=== PATIENT | male | born 1950 | race Caucasian/White ===

== ENCOUNTER 2016-11-28 09:22 | Emergency (ER) | payer MEDICARE, OTHER | END 2016-11-28 10:46 | disposition home or self-care (01) | DX: L03.031 Cellulitis of right toe (principal); R03.0 Elevated blood-pressure reading, without diagnosis of hypertension ==

== ENCOUNTER 2018-10-24 10:43 | Day surgery (SDC) | payer MEDICARE, OTHER ==
[2018-10-24] MEDS ORDERED: LACTATED RINGERS 1,000 ML IV ONE (10:55)
[2018-10-24] MEDS ORDERED: LIDO GARGLE 30 ML BOTTLE ONE (11:45)
[2018-10-24] MEDS ORDERED: EPINEPHrine 1 MG/ML AMP ONE (11:46)
[2018-10-24] MEDS ORDERED: BENZOCAINE/TETRACAINE/BUTAMBEN 20 GM TOP ONE (12:05)
[2018-10-24] MEDS ORDERED: LIDO GARGLE 30 ML BOTTLE PO ONE (12:05)
[2018-10-24] MEDS ORDERED: fentaNYL 250 MCG/5 ML VIAL IVP ONE (12:28)
[2018-10-24] MEDS ORDERED: MIDAZOLAM 2 MG/2 ML VIAL IVP ONE (12:28)
[2018-10-24 13:34] VITALS: BP 117/93
== END 2018-10-24 10:44 | disposition home or self-care (01) ==
LOC: SDS 10:43
PROVIDERS: ATTEND Surgery
PROC: 0DBL8ZZ Excision of Transverse Colon, Via Natural or Artificial Opening Endoscopic (ICD-10-PCS; 2018-10-24)
PROC: 0DB38ZX Excision of Lower Esophagus, Via Natural or Artificial Opening Endoscopic, Diagnostic (ICD-10-PCS; principal; 2018-10-24 11:45)
PROC: 0DB68ZX Excision of Stomach, Via Natural or Artificial Opening Endoscopic, Diagnostic (ICD-10-PCS; 2018-10-24 11:45)
DX: Z12.11 Encounter for screening for malignant neoplasm of colon (principal); K22.70 Barrett's esophagus without dysplasia; K31.7 Polyp of stomach and duodenum; D12.3 Benign neoplasm of transverse colon; K57.30 Diverticulosis of large intestine without perforation or abscess without bleeding; K64.8 Other hemorrhoids; K75.9 Inflammatory liver disease, unspecified; I10 Essential (primary) hypertension; H93.19 Tinnitus, unspecified ear; E78.00 Pure hypercholesterolemia, unspecified; H40.9 Unspecified glaucoma; Z80.0 Family history of malignant neoplasm of digestive organs; Z87.891 Personal history of nicotine dependence
CPT/HCPCS: 43239; 45380; A9270; J3010; J7120

== ENCOUNTER 2020-10-18 13:33 | Outpatient (CLI) | payer MEDICARE, OTHER | END 2020-10-18 13:34 | disposition home or self-care (01) | LOC: COV 13:33 | PROVIDERS: ATTEND Surgery | DX: Z01.812 Encounter for preprocedural laboratory examination (principal); Z87.19 Personal history of other diseases of the digestive system; Z20.822 Contact with and (suspected) exposure to COVID-19 ==

== ENCOUNTER 2020-10-23 07:16 | Day surgery (SDC) | payer MEDICARE, OTHER ==
[2020-10-23] MEDS ORDERED: LACTATED RINGERS 1,000 ML IV ONE ×2 (07:41→09:02)
[2020-10-23] MEDS ORDERED: MIDAZOLAM 2 MG/2 ML VIAL ONE (08:40)
[2020-10-23] MEDS ORDERED: fentaNYL 100 MCG/2 ML VIAL ONE (08:40)
[2020-10-23] MEDS ORDERED: LIDO GARGLE 30 ML BOTTLE ONE (08:40)
[2020-10-23] MEDS ORDERED: LIDO GARGLE 30 ML BOTTLE PO ONE (08:44)
[2020-10-23 09:17] VITALS: BP 124/89
== END 2020-10-23 07:17 | disposition home or self-care (01) ==
LOC: SDS 07:16
PROVIDERS: ATTEND Surgery
PROC: 0DB58ZX Excision of Esophagus, Via Natural or Artificial Opening Endoscopic, Diagnostic (ICD-10-PCS; principal; 2020-10-23 08:30)
DX: K22.70 Barrett's esophagus without dysplasia (principal); K21.9 Gastro-esophageal reflux disease without esophagitis; K31.7 Polyp of stomach and duodenum; K44.9 Diaphragmatic hernia without obstruction or gangrene; Z87.891 Personal history of nicotine dependence
CPT/HCPCS: 43239; A9270; J7120

== ENCOUNTER 2022-10-10 07:26 | Outpatient (CLI) | payer MEDICARE, OTHER | END 2022-10-10 07:27 | disposition home or self-care (01) | LOC: RT 07:26 | PROVIDERS: ATTEND Nurse Practitioner Family | DX: R07.89 Other chest pain (principal) | CPT/HCPCS: 93005 ==

== ENCOUNTER 2024-03-27 07:03 | Day surgery (SDC) | payer MEDICARE, OTHER ==
[2024-03-27] MEDS: LACTATED RINGERS 1,000 ML IV ONE ×3 (07:10→09:13)
[2024-03-27] MEDS ORDERED: LIDOCAINE TOPICAL 4% 50 ML BOTTLE ONE (08:03)
--- NOTE | 2024-03-27 08:18 | ANESTHESIA ---
Pre-Anesthesia VS, & Labs - Diagnosis Beltrán's, GERD, screening - Procedure EGD, Colonoscopy Vital Signs: Temp Pulse Resp BP Pulse Ox O2 Flow Rate 35.9 C L 65 22 131/91 H 97 03/27/24 07:14 03/27/24 07:14 03/27/24 07:14 03/27/24 07:14 03/27/24 07:14 Height: 6 ft Weight (kg): 107 kg Body Mass Index: 32.0 BMI Classification: Obese - NPO Other (prep last at 4:30 last water at 5:20) Home Medications and Allergies Home Medications: Ambulatory Orders Latanoprost 0.005% Ophth Drops [Xalatan Ophth Drops] 1 drops EACHEYE QPM 03/23/24 Losartan [Cozaar] 25 mg PO DAILY 03/23/24 Timolol 0.5% Ophth Drops [Timoptic 0.5% Ophth Drops] 1 drops EACHEYE BID cycloSPORINE [Vevye] 1 drops EACHEYE BID 03/23/24 Omeprazole 20 mg ORAL DAILY 11/28/16 Simvastatin 20 mg ORAL DAILY 11/28/16 Latanoprost 0.005% Ophth Drops [Xalatan Ophth Drops] 1 drops EACHEYE QPM 03/23/24 Losartan [Cozaar] 25 mg PO DAILY 03/23/24 Timolol 0.5% Ophth Drops [Timoptic 0.5% Ophth Drops] 1 drops EACHEYE BID 03/23/24 cycloSPORINE [Vevye] 1 drops EACHEYE BID 03/23/24 Allergies/Adverse Reactions: Allergies Allergy/AdvReac Type Severity Reaction Status Date / Time No Known Drug Allergies Allergy Verified 03/27/24 07:29 Anes History & Medical History - Anesthetic History Anesthesia Complications: reports: No previous complications - Medical History Cardiovascular: reports: Hypertension, High cholesterol Pulmonary: reports: None Gastrointestinal: reports: GERD Urinary: reports: Benign prostate hypertrophy Musculoskeletal: reports: None, Other Endocrine/Autoimmune: reports: None Skin: reports: Rosacea Smoking Status: Never smoker Psychosocial: reports: Alcohol (glas a wine a day) History of Cancer?: No - Surgical History General: reports: Colonoscopy, EGD Eyes Ears Nose Throat (EENT): reports: Tonsil/Adenoidectomy Urologic: reports: Prostatic surgery Exam General: Alert, Oriented x3 Dental: WNL Mouth Opening: Greater than 4 Fingerbreadths Neck Mobility: Normal Mallampati classification: II Thyromental Distance: greater than 6 cm Respiratory: Lungs clear Cardiovascular: Regular rate Plan Anesthesia Type: Total IV Consent for Procedure(s) Verified and Reviewed: Yes Code Status: Attempt Resuscitation ASA classification: 2-Mild systemic disease Is this case an emergency?: No
[2024-03-27] MEDS ORDERED: PROPOFOL 500 MG/50 ML 500 MG/50 ML VIAL ONE (08:40)
[2024-03-27 10:09] VITALS: BP 149/95; O2SAT 99
--- NOTE | 2024-03-27 14:55 | ANESTHESIA POST OP EVALUATION ---
Anesthesia Post Eval - Post Anesthesia Eval Vitals: Last Vital Signs Temp 36.1 C L 03/27/24 09:45 Pulse 50 L 03/27/24 09:45 Resp 16 03/27/24 09:45 BP 149/95 H 03/27/24 09:45 Pulse Ox 99 03/27/24 09:45 O2 Flow Rate CV Function Including HR & BP: Stable Pain Control: Satisfactory Nausea & Vomiting: Negative Mental Status: Baseline Respiratory Status: Airway Patent Hydration Status: Satisfactory Anesthesia Complications: None
== END 2024-03-27 07:04 | disposition home or self-care (01) ==
LOC: SDS 07:03
PROVIDERS: ATTEND Surgery
PROC: 0DBM8ZX Excision of Descending Colon, Via Natural or Artificial Opening Endoscopic, Diagnostic (ICD-10-PCS; principal; 2024-03-27 08:15)
DX: Z12.11 Encounter for screening for malignant neoplasm of colon (principal); D12.4 Benign neoplasm of descending colon; K21.9 Gastro-esophageal reflux disease without esophagitis; K31.7 Polyp of stomach and duodenum; K57.30 Diverticulosis of large intestine without perforation or abscess without bleeding; K64.1 Second degree hemorrhoids; E66.9 Obesity, unspecified; Z68.33 Body mass index [BMI] 33.0-33.9, adult; Z80.0 Family history of malignant neoplasm of digestive organs; Z87.19 Personal history of other diseases of the digestive system; Z87.891 Personal history of nicotine dependence
CPT/HCPCS: 43235; 45385; J7120